=== PATIENT | male | born 1970 | race American Indian/Alaskan Native ===

== ENCOUNTER 2017-10-26 21:31 | Inpatient (IN) | payer OTHER ==
[2017-10-26] MEDS ORDERED: NITRO-BID 2% TP ONE (21:52)
[2017-10-26] MEDS ORDERED: SUBLIMAZE IV ONE (21:52)
[2017-10-26] MEDS ORDERED: ZOFRAN IV ONE (21:52)
--- NOTE | 2017-10-26 22:04 | Emergency Department Report ---
HPI - General Chief Complaint: Chest Pain Time Seen by Provider: 10/26/17 21:46 - HPI HPI: Room 1 The patient is a 47-year-old male presenting with a chief complaint of chest pain. The patient states last night he developed left-sided chest pa described as sharpness in addition to cramping/"knotting" sensation in his midepigastric region. The patient admits to nausea and vomiting with this pain but is uncertain if he felt short of breath or became diaphoretic. The patient states he thought it was gas so he drank some water and vinegar but it did not help. The patient states he took 2 aspirin and it did help somewhat. The patient states his pain persisted and EMS was called. The patient states when EMS gave him nitroglycerin did help his chest pain significantly but only transiently. The patient states his pain is returned and he gives a_of 12/26. The patient states he's never had a stress test or cardiac catheterization Location: [See above] Duration: Constant since last night Quality: [See above] Severity: 12/26 Modifying factors: [see above] Context: [see above] Mode of transportation: [not driving] ED Past Medical Hx - Past Medical History Previous Medical History?: Yes Hx Hypertension: Yes (no meds) Additional medical history: "fast heart " - Surgical History Past Surgical History?: Yes Additional Surgical History: rt inguinal hernia repair as a child - Family History Family history: no significant - Social History Smoking Status: Current Every Day Smoker (cigars) Substance Use Type: None (denies illicit drug use), Alcohol (3-4 beers daily) - Medications Home Medications: Home Medications Medication Instructions Recorded Confirmed Last Taken Type No Known Home Medications [No 01/10/14 10/26/17 Unknown History Reported Home Medications] ED Review of Systems ROS: Stated complaint: CHEST PAIN Other details as noted in HPI Constitutional: diaphoresis (patient uncertain) Eyes: denies: eye pain ENT: denies: throat pain Respiratory: shortness of breath (patient uncertain) Cardiovascular: chest pain Gastrointestinal: abdominal pain, nausea, vomiting Genitourinary: denies: dysuria Musculoskeletal: denies: back pain Neurological: denies: headache Physical Exam - Physical Exam Vital Signs: Vital Signs 10/26/17 10/26/17 21:32 21:38 Temperature 99.5 F Pulse Rate 100 H 100 H Respiratory 16 16 Rate Blood Pressure 129/91 O2 Sat by Pulse 97 98 Oximetry Physical Exam: GENERAL: The patient is well-developed well-nourished male lying on stretcher appearing to be in mild discomfort HEENT: Normocephalic. Atraumatic. Extraocular motions are intact. Patient has moist mucous membranes. NECK: Supple. Trachea midline CHEST/LUNGS: Clear to auscultation. There is no respiratory distress noted. HEART/CARDIOVASCULAR: Regular. There is no tachycardia. There is no gallop rub or murmur. ABDOMEN: Abdomen is soft, with mild discomfort to palpation in the midepigastric region. Patient has normal bowel sounds. There is no abdominal distention. SKIN: There is no rash. There is no edema. There is no diaphoresis. NEURO: The patient is awake, alert, and oriented. The patient is cooperative. The patient has normal speech MUSCULOSKELETAL: There is no evidence of acute injury. ED Course Vital Signs 10/26/17 10/26/17 21:32 21:38 Temperature 99.5 F Pulse Rate 100 H 100 H Respiratory 16 16 Rate Blood Pressure 129/91 O2 Sat by Pulse 97 98 Oximetry ED Medical Decision Making - Lab Data Result diagrams: 10/26/17 21:54 10/26/17 21:54 - EKG Data -: EKG Interpreted by Ar EKG shows normal: sinus rhythm Rate: normal - EKG Data When compared to previous EKG there are: previous EKG unavailable Interpretation: nonspecific ST-T wave meliton (T-wave inversions in leads 2, 3, aVF) - Radiology Data Radiology results: report reviewed (CT chest, CT abdomen and pelvis), image reviewed (CT chest, CT abdomen and pelvis) [address] [address] Cat Scan Report Signed Patient: SYLWIA CALLES MR#: [id number] : 1970 Acct:[id number] Age/Sex: 47 / M ADM Date: 10/26/17 Loc: ED Attending Dr: Ordering Physician: IVAN HUGHES MD Date of Service: 10/26/17 Procedure(s): CT angio chest Accession Number(s): [id number] cc: IVAN HUGHES MD FINAL REPORT PROCEDURE: CT ANGIO CHEST TECHNIQUE: Computerized tomographic angiography of the chest was performed after the IV injection of iodinated nonionic contrast including image processing. The image data was postprocessed using 2-dimensional multiplanar reformatted (MPR) and 3-dimensional (MIP and/or volume rendered) techniques. HISTORY: chest pain COMPARISON: No prior studies are available for comparison. FINDINGS: Heart and pericardium: Coronary artery calcifications. Thoracic aorta: Normal. Pulmonary vasculature: Normal. Lymph nodes: No enlarged thoracic lymph nodes. Lungs: Normal. Pleural space: No effusion, thickening, or pneumothorax. Musculoskeletal structures: No significant abnormality. Upper abdominal structures: Small hiatal hernia.. IMPRESSION: No embolism. No aneurysm or dissection. No focal infiltrate. Transcribed By: BRP Dictated By: JACQUES REES MD Electronically Authenticated By: JACQUES REES MD Signed Date/Time: 10/26/172312 DD/ 12 TD/TT: 10/26/172312 [place] [address] Cat Scan Report Signed Patient: SYLWIA CALLES MR#: [id number] : 1970 Acct:[id number] Age/Sex: 47 / M ADM Date: 10/26/17 Loc: ED Attending Dr: Ordering Physician: IVAN HUGHES MD Date of Service: 10/26/17 Procedure(s): CT abdomen pelvis w con Accession Number(s): [id number] cc: IVAN HUGHES MD FINAL REPORT PROCEDURE: CT ABDOMEN PELVIS W CON TECHNIQUE: Computerized axial tomography of the abdomen and pelvis was performed after the IV injection of iodinated nonionic contrast. HISTORY: midepigastric abdominal pain COMPARISON: No prior studies are available for comparison. FINDINGS: Visualized lower thorax: No significant abnormality. Liver: Hepatomegaly. No biliary dilatation.. Spleen: Normal size and attenuation. Gallbladder and biliary system: Normal. Pancreas: Normal. Adrenals: Normal. Kidneys: Normal. No hydronephrosis. GI tract: Hiatal hernia. No dilated small or large bowel. Appendix is not visualized. Lymph nodes and mesentery: Normal. Vasculature: Atherosclerotic calcifications.. Bladder: Normal. Reproductive organs: Normal. Peritoneum: No free fluid. Musculoskeletal structures: No significant abnormality. Other: None. IMPRESSION: Hiatal hernia Hepatomegaly. No obstruction. No hydronephrosis. Transcribed By: LB Dictated By: JACQUES REES MD Electronically Authenticated By: JACQUES REES MD Signed Date/Time: 10/26/172324 DD/ 24 TD/TT: 10/26/172324 - Differential Diagnosis ACS, pericarditis, PE, pneumonia, pancreatitis, gastritis, dissection Critical care attestation.: If time is entered above; I have spent that time in minutes in the direct care of this critically ill patient, excluding procedure time. ED Disposition Clinical Impression: Chest pain, T wave inversion in EKG Disposition: OP ADMIT IP TO THIS HOSP Is pt being admited?: Yes Condition: Fair Instructions: Chest Pain (ED) Time of Disposition: 00:02 (hospitalist paged (Dr. Queenie Zimmer))
[2017-10-26 22:23] LABS: BUN/Creatinine Ratio 11; Blood Urea Nitrogen 8 mg/dL (9-20); Hematocrit 37.7 % (35.5-45.6); Hemoglobin 12.5 gm/dl (11.8-15.2); Hemolysis Index 5; Lipase 46 units/L (13-60); Mean Corpuscular HGB Conc 33 % (32-34); Mean Corpuscular Hemoglobin 31 pg (28-32); Mean Corpuscular Volume 94 fl (84-94); Platelet Count 156 K/mm3 (140-440); Red Blood Count 4.02 M/mm3 (3.65-5.03); Red Cell Distribution Width 14.5 % (13.2-15.2)
[2017-10-26 22:55] LABS: Band Neutrophils # (Manual) 0.2 K/mm3; Basophils % (Manual) 0 % (0.0-1.8); Eosinophils % (Manual) 0 % (0.0-4.3); Total Cells Counted 100
[2017-10-26 22:56] LABS: Platelet Estimate Consistent w Auto; Poikilocytosis Few; Target Cells 1+
--- NOTE | 2017-10-26 23:17 | Cat Scan Report ---
FINAL REPORT PROCEDURE: CT ANGIO CHEST TECHNIQUE: Computerized tomographic angiography of the chest was performed after the IV injection of iodinated nonionic contrast including image processing. The image data was postprocessed using 2-dimensional multiplanar reformatted (MPR) and 3-dimensional (MIP and/or volume rendered) techniques. HISTORY: chest pain COMPARISON: No prior studies are available for comparison. FINDINGS: Heart and pericardium: Coronary artery calcifications. Thoracic aorta: Normal. Pulmonary vasculature: Normal. Lymph nodes: No enlarged thoracic lymph nodes. Lungs: Normal. Pleural space: No effusion, thickening, or pneumothorax. Musculoskeletal structures: No significant abnormality. Upper abdominal structures: Small hiatal hernia.. IMPRESSION: No embolism. No aneurysm or dissection. No focal infiltrate.
--- NOTE | 2017-10-26 23:29 | Cat Scan Report ---
FINAL REPORT PROCEDURE: CT ABDOMEN PELVIS W CON TECHNIQUE: Computerized axial tomography of the abdomen and pelvis was performed after the IV injection of iodinated nonionic contrast. HISTORY: midepigastric abdominal pain COMPARISON: No prior studies are available for comparison. FINDINGS: Visualized lower thorax: No significant abnormality. Liver: Hepatomegaly. No biliary dilatation.. Spleen: Normal size and attenuation. Gallbladder and biliary system: Normal. Pancreas: Normal. Adrenals: Normal. Kidneys: Normal. No hydronephrosis. GI tract: Hiatal hernia. No dilated small or large bowel. Appendix is not visualized. Lymph nodes and mesentery: Normal. Vasculature: Atherosclerotic calcifications.. Bladder: Normal. Reproductive organs: Normal. Peritoneum: No free fluid. Musculoskeletal structures: No significant abnormality. Other: None. IMPRESSION: Hiatal hernia Hepatomegaly. No obstruction. No hydronephrosis.
[2017-10-27] MEDS ORDERED: APRESOLINE IV PRN (00:38)
--- NOTE | 2017-10-27 00:41 | History and Physical Report ---
History of Present Illness Date of examination: 10/27/17 History of present illness: 47-year-old male with no medical problem comes to ER for evaluation of chest pain and abdominal. Pain is in the left chest, left upper abdomen, which he described as bad, hurting pain, constant pain lasted for several hours, intensity 5/10, no radiation. he cannot identify exacerbating or relieving factor. No nausea, vomiting, shortness of breath, no diaphoresis or palpitation Review of systems Constitutional: no weight loss, chills Ears, eyes, nose, mouth and throat: no nasal congestion, no nasal discharge, no sinus pressure, no vision change, no red eye. Neck: No neck pain or rigidity. Cardiovascular: no palpitations Respiratory: No cough, shortness of breath Gastrointestinal: no abdominal pain, hematochezia Genitourinary : no dysuria, frequency , no hematuria Musculoskeletal: no joint swelling or muscle ache Integumentary: no rash, no pruritis Neurological: no parathesias, no numbness, no focal weakness Endocrine: no cold or heat intolerance, no polyuria or polydipsia Hematologic/Lymphatic: no easy bruising, no easy bleeding, no gland swelling Allergic/Immunologic: no urticaria, no angioedema. PAST MEDICAL HISTORY: None PAST SURGICAL HISTORY: hernia repair SOCIAL HISTORY: Admits to alcohol, tobacco, no drugs FAMILY HISTORY: Hypertension Medications and Allergies Allergies Allergy/AdvReac Type Severity Reaction Status Date / Time No Known Allergies Allergy Verified 01/10/14 12:59 Home Medications Medication Instructions Recorded Confirmed Last Taken Type No Known Home Medications [No 01/10/14 10/26/17 Unknown History Reported Home Medications] Active Meds: Active Medications Hydralazine HCl (Apresoline) 5 mg IV Q6HR PRN PRN Reason: Hypertension Morphine Sulfate (Morphine) 2 mg IV Q4H PRN PRN Reason: Pain, Moderate (4-6) Exam - Physical Exam Narrative exam: Gen. appearance: Patient lying in bed, no apparent distress HEENT: Normocephalic, atraumatic, pupils equally round and reactive to light, extraocular movement intact, and no sclericterus,. No JVD or thyromegaly or nodule,neck supple, no carotid bruit ,mucous membranes moist, no exudate or erythema Heart: S1, S2, regular rate and rhythm Lungs: Clear, breathing comfortable Abdomen: Positive bowel sounds, nontender, non distended, no organomegaly Extremity: No edema, cyanosis, clubbing Skin: No rash, nodules, warm, dry Neuro: Oriented 3, cranial nerves II-12 intact, speech is fluent, motor and sensory intact - Constitutional Vitals: Temp Pulse Resp BP Pulse Ox 99.5 F 82 21 152/76 98 10/26/17 21:32 10/26/17 22:44 10/26/17 22:30 10/26/17 22:44 10/26/17 22:35 Results - Labs CBC & Chem 7: 10/26/17 21:54 10/26/17 21:54 Labs: Abnormal lab results 10/26/17 10/26/17 Range/Units 21:54 21:54 Seg Neuts % (Manual) 74.0 H (40.0-70.0) % Chloride 97.5 L (98-107) mmol/L BUN 8 L (9-20) mg/dL Creatinine 0.7 L (0.8-1.5) mg/dL Glucose 104 H (75-100) mg/dL - Imaging and Cardiology CT scan - abdomen: report reviewed CT scan - chest: report reviewed CT scan - pelvis: report reviewed Assessment and Plan Assessment Chest pain Elevated blood pressure hypothyroidism Plan Admit to medicine Check cardiac enzymes, stress test Start IV hydralazine Start aspirin, pain medication, DVT prophalaxis
[2017-10-27] MEDS: MORPHINE IV PRN ×2 (01:16→05:34)
[2017-10-27] MEDS ORDERED: SODIUM CHLORIDE FLUSH SYRINGE 10 ML IV PRN (02:16)
[2017-10-27] MEDS ORDERED: ZOFRAN IV PRN (02:16)
[2017-10-27] MEDS ORDERED: TYLENOL PO PRN (02:16)
[2017-10-27 03:15] LABS: Creatine Kinase MB < 1.0 ng/mL (0.0-4.0)
[2017-10-27] MEDS ORDERED: XANAX PO STA (08:28)
[2017-10-27 08:33] LABS: Creatine Kinase MB < 1.0 ng/mL (0.0-4.0)
[2017-10-27] MEDS ORDERED: LEXISCAN IV ONE (09:59)
[2017-10-27] MEDS ORDERED: LOVENOX SUB-Q SCH ×2 (10:00)
[2017-10-27] MEDS ORDERED: SODIUM CHLORIDE FLUSH SYRINGE 10 ML IV SCH (10:00)
[2017-10-27] MEDS ORDERED: BABY ASPIRIN PO SCH (10:00)
[2017-10-27 12:12] VITALS: BP 147/103
--- NOTE | 2017-10-27 13:34 | Discharge Summary ---
Providers - Providers Date of Admission: 10/27/17 02:16 Date of discharge: 10/27/17 Attending physician: GRETEL GARDNER Primary care physician: MEAT GRADER Hospitalization Reason for admission: chest pain Condition: Fair Pertinent studies: Stress test negative for reversible ischemia, normal left ventricular function[ preliminary report] CT abdomen and pelvis; hiatal hernia, hepatomegaly, no obstruction no hydronephrosis CTA chest; no embolism and no dissection no infiltrate Hospital course: Very pleasant 47-year-old male patient with significant past medical history of Tourette's syndrome, not on any medications was admitted through emergency room with left-sided chest pain and abdominal pain Patient was initially evaluated CTA chest and CT abdomen and pelvis were negative for acute abnormalities Symptomatically managed underwent serial EKG and cardiac enzymes negative subsequently underwent stress test which was negative for reversible ischemia, normal left vent function per cardiology pulmonary report. Patient has history of ongoing tobacco use, counseling smoking cessation done and advised nicotine patch as needed. Patient says that he is going through stress with the domestic issue, denies depression, Denies suicidal thoughts or ideation. Patient also advised to see behavioral health/counseling to deal with his stress as needed Today is comfortable with no new complaints Denies chest pain or shortness of breath, Vital signs stable Physical examination prior to discharge is unremarkable Discharge diagnosis; Atypical chest pain; noncardiac, stress test negative Gastroesophageal reflux disease; probably the cause of chest pain Ongoing tobacco use H/O Tourette's syndrome[stable not on any medications] Disposition: TO HOME OR SELFCARE Time spent for discharge: 31 min Core Measure Documentation - Palliative Care Palliative Care/ Comfort Measures: Not Applicable - Core Measures Any of the following diagnoses?: none Exam - Constitutional Vitals: Temp Pulse Resp BP Pulse Ox 98.2 F 82 18 147/103 98 10/27/17 12:00 10/27/17 11:38 10/27/17 11:38 10/27/17 11:38 10/27/17 11:38 General appearance: Present: no acute distress, well-nourished - EENT Eyes: Present: PERRL, EOM intact - Neck Neck: Present: supple, normal ROM - Respiratory Respiratory effort: normal Respiratory: negative: rales, rhonchi, wheezing - Cardiovascular Rhythm: regular Heart Sounds: Present: S1 & S2 - Extremities Extremities: no ischemia, No edema - Abdominal General gastrointestinal: Present: soft, non-tender, non-distended, normal bowel sounds - Integumentary Integumentary: Present: clear, warm - Musculoskeletal Musculoskeletal: strength equal bilaterally - Psychiatric Psychiatric: appropriate mood/affect, cooperative - Neurologic Neurologic: CNII-XII intact, moves all extremities Plan Activity: no restrictions Diet: regular Special Instructions: record daily weights Additional Instructions: If you have recurrent chest pain or shortness of breath , contact M.D. or go to emergency room. Smoking cessation advised Follow up with: PRIMARY CARE, [Primary Care Provider] - 3-5 Days Prescriptions: Nicotine [Habitrol] 14 mg TD DAILY #14 patch Pantoprazole [Protonix] 40 mg PO QDAY #14 tablet
--- NOTE | 2017-10-28 01:56 | Treadmill Report ---
Resting myocardial perfusion imaging studies revealed homogeneous radioisotope activity throughout. There was also slightly increased uptake in the liver. On post-Lexiscan myocardial perfusion imaging studies revealed homogeneous radioisotope activity. On gated scan, ejection fraction was noted to be 52%. There is no segmental motion abnormality. There is no evidence of transient ischemic dilatation of the left ventricle. IMPRESSION: 1. This test is negative for ischemia. 2. EF 52%. [facility]# [id number] [facility]KALINA JAIN
== END 2017-10-27 17:00 | disposition home or self-care (01) | DRG 392 ==
LOC: ED 21:31 → 4A 10-27 02:16
PROVIDERS: ADMIT Internal Medicine; ATTEND Internal Medicine
DX: K21.9 Gastro-esophageal reflux disease without esophagitis (principal); I10 Essential (primary) hypertension; F17.210 Nicotine dependence, cigarettes, uncomplicated; R07.89 Other chest pain; E03.9 Hypothyroidism, unspecified; K44.9 Diaphragmatic hernia without obstruction or gangrene; R16.0 Hepatomegaly, not elsewhere classified; F95.2 Tourette's disorder
CPT/HCPCS: 36415; 71275; 74177; 78452; 80048; 82550; 82553; 83690; 84484; 85007; 85025; 93005; 93010; 93017; A9502; J0360; J1650; J2270; J2405; J2785; J3010; Q9967